=== PATIENT | female | born 1995 | race Two or more races ===

== ENCOUNTER 2020-05-25 13:34 | Inpatient (IN) | payer OTHER ==
[~2020-05-25] VITALS: Ht 152.4 cm; Wt 78.5 kg
[2020-06-04] MEDS ORDERED: PRENATAL + DHA1 EAC1 PO (08:46)
== END 2020-06-05 13:17 | disposition home or self-care (01) | DRG 807 ==
LOC: LDR 05-30 12:45 → OB/GYN 06-02 14:33
PROVIDERS: ADMIT Obstetrics & Gynecology; ATTEND Obstetrics & Gynecology
PROC: 10E0XZZ Delivery of Products of Conception, External Approach (ICD-10-PCS; principal; 2020-06-02)
PROC: 0HQ9XZZ Repair Perineum Skin, External Approach (ICD-10-PCS; 2020-06-02)
PROC: 10907ZC Drainage of Amniotic Fluid, Therapeutic from Products of Conception, Via Natural or Artificial Opening (ICD-10-PCS; 2020-06-02)
PROC: 4A1HXCZ Monitoring of Products of Conception, Cardiac Rate, External Approach (ICD-10-PCS; 2020-06-02)
DX: O70.0 First degree perineal laceration during delivery (principal); Z37.0 Single live birth; Z3A.38 38 weeks gestation of pregnancy; Z20.828 Contact with and (suspected) exposure to other viral communicable diseases